=== PATIENT | female | born 1980 | race Hispanic/Latino ===

== ENCOUNTER 2017-06-21 21:07 | Day surgery (SDC) | payer OTHER ==
[2017-06-21 21:50] VITALS: BP 124/78; TEMP 98.7; BMI 31.1
--- NOTE | 2017-06-21 23:14 | PRG ---
DATE OF SERVICE: 06/21/2017 PRIMARY HOUSEHOLD CHORES: Dr. Andres at [facility]. CHIEF COMPLAINT: High blood pressure. HISTORY OF PRESENT ILLNESS: The patient is a 36-year-old G3, P2 female with an intrauterine pregnanc y at 36 weeks and 4 days, who is presenting to Labor and Delivery today with concerns of elevated blo od pressures at home. She reports a history of 2 previous deliveries at 34 weeks for preeclampsia an d is just concerned that of developing it once again. The patient denies any headaches, fever, fall, illness, chest pain, shortness of breath, nausea, vomiting, diarrhea, constipation, any new rashes, hip problems, knee problems, vaginal bleeding, leakage of fluid or urinary issues. She does report s he has been having swelling in her feet, to the point that she cannot feel her feet well and said brittany t her tongue has been numb. The patient reports that home, her blood pressures were running in the 1 40s diastolic. PAST MEDICAL HISTORY: Negative. PAST SURGICAL HISTORY: Negative. ALLERGIES: No known drug allergies. SOCIAL HISTORY: Denies drug, alcohol, or tobacco use. CURRENT MEDICATIONS: vitamins. OB LABS: Unavailable at time of dictation. REVIEW OF SYSTEMS: Per HPI. PHYSICAL EXAMINATION: VITAL SIGNS: The patient has been here for an hour and a half. Blood pressures have been in the 120 s to 130s/70s and 80s, heart rate in the 90s, and respiratory rate 18. GENERAL: She appears to be in no acute distress. She is alert and oriented, cooperative and pleasan t to interact with. HEENT: Head is normocephalic, atraumatic. LUNGS: Clear to auscultation bilaterally. HEART: Regular rate and rhythm. ABDOMEN: Gravid, soft, nontender. EXTREMITIES: Nontender. She does have bilateral pitting edema in her feet and ankles. GENITOURINARY: Has been deferred. heart tracing demonstrates a baby fetus with a baseline in the 120s with moderate long-term variability, positive accelerations, no decelerations. She might anthony ve some irritability on the tocometer though not clearly defined. ASSESSMENT AND PLAN: The patient is a 36-year-old female with an intrauterine at 36 weeks and 4 days concerned about elevated blood pressures. Her pressures have been well within normal limi ts over the last hour and half with no spikes. Reassurance has been given to Ms. Covington with precautio ns to return to Labor and Delivery if she has pressures in the severe range 160 the systolic and abov e 100 on diastolic. If she continues to have pressures in the mild range at home, tomorrow she has margarita rdz counseled to call her doctor, Dr. Andres for instructions on how to proceed. She does have an a ppointment the day after tomorrow, which she has been encouraged to keep.
== END 2017-06-21 22:45 | disposition home or self-care (01) ==
LOC: L&D/OP 21:07
PROVIDERS: ATTEND Student in an Organized Health Care Education/Training Program
DX: O99.89 Other specified diseases and conditions complicating pregnancy, childbirth and the puerperium (principal); R03.0 Elevated blood-pressure reading, without diagnosis of hypertension; Z3A.36 36 weeks gestation of pregnancy; Z87.59 Personal history of other complications of pregnancy, childbirth and the puerperium; Z79.82 Long term (current) use of aspirin; Z79.899 Other long term (current) drug therapy
CPT/HCPCS: 99282

== ENCOUNTER 2017-07-17 04:11 | Inpatient (IN) | payer MEDICAID, OTHER, SELFPAY ==
[2017-07-17 04:39] VITALS: BMI 32.1
[2017-07-17] MEDS ORDERED: Lidocaine 1% (PF) 30 ML VIAL SC PRN (04:54)
[2017-07-17] MEDS ORDERED: Methylergonovine 0.2 MG/ML VIAL IM PRN ×4 (04:54→15:54)
[2017-07-17] MEDS ORDERED: Misoprostol 200 MCG TAB PR PRN (04:54)
[2017-07-17] MEDS ORDERED: HYDROcodone/Acetaminophen 5/325 mg Tablet PO PRN ×4 (04:54→15:54)
[2017-07-17] MEDS ORDERED: Ibuprofen 800 MG TAB PO PRN (04:54)
[2017-07-17] MEDS ORDERED: Penicillin G Potassium 5 MILL.UNITS in Sodium Chloride 0.9% 100 ML IVPB SCH (05:00)
[2017-07-17] MEDS ORDERED: LR 500 ML/Oxytocin 10 units 500 ML IV SCH (05:00)
--- NOTE | 2017-07-17 05:08 | PDOC.LDHP ---
Labor and Delivery H&P Chief complaint: contractions HPI: 36 yo LAF EDC= 07/15/17 presents c/o SROM at 3:30 AM, now with UCs. Current gestational age (weeks): 40 Due date: 07/15/17 Dating criteria: last menstrual period Grav: 3 Para: 2 OB History Details: PNC at [facility]. On Progesterone until 37 weeks 2* to SVDs x2. Stopped ASA 1 week ago. Current complications: other Abnormal US findings: No Past Medical History: none Current medications: pre-kings vitamins Previous surgical history: none Allergies/Adverse Reactions: Allergies Allergy/AdvReac Type Severity Reaction Status Date / Time No Known Allergies Allergy Verified 07/17/17 04:41 Social history: none - Physical Exam Vital signs reviewed and normal: yes General: NAD Heart: RRR Lungs: nonlabored breathing Abdomen: gravid Extremeties: trace edema FHT: category 1 [place] contractions every: UCs seen q 3-5 mins - Vaginal Exam cm dilated: 4 Effacement: 50% Station: -2 - OB Labs Blood type: unknown RH: unknown Antibody Screen: unknown HIV: unknown RPR: unknown HEPSAg: unknown 1 hour GCT: unknown 3 hour GTT: unknown GBS: unknown - Assessment L&D Assessment: term rupture in membranes - Plan Plan: admit to L&D, labor augmentation if indicated (Records not available to review)
[2017-07-17] MEDS ORDERED: Ondansetron HCl/PF 4 MG/2 ML Vial IVP PRN ×2 (05:11→15:54)
[2017-07-17] MEDS ORDERED: Promethazine HCl 25 MG/ML VIAL IM PRN ×2 (05:11→15:54)
[2017-07-17 05:27] LABS: Hemoglobin 10.4 g/dL (12.0-16.0); Mean Corpuscular HGB CONC 32.7 g/dL (32.0-36.0); Mean Corpuscular Hemoglobin 25.3 pg (27.0-31.0); Mean Corpuscular Volume 77.3 fl (81.0-99.0); Platelet Count 217 thou/uL (130-400); RBC Distribution Width 16.3 % (11.5-14.5); Red Blood Cell (RBC) Count 4.11 mill/uL (4.20-5.40); White Blood Cell (WBC) Count 5.1 thou/uL (4.8-10.8)
[2017-07-17] MEDS: Lactated Ringer's 1,000 ML IV SCH ×2 (05:35→13:31)
[2017-07-17 05:56] LABS: Hep B Surf AB Non-Reactive (NonReactive); Syphilis Antibody Nonreactive (Nonreactive); Syphilis Antibody Index 0.04 S/CO (<1.00 Non-Reactive)
[2017-07-17] MEDS: Penicillin G 2.5 MILL.units 2.5 MILL.UNITS in Premix Bag 1 BAG IVPB SCH ×2 (09:30→13:30)
[2017-07-17] MEDS: LR / Pitocin 40 units/1000 ml 1,000 ML IV PRN ×2 (15:31→17:13)
[2017-07-17] MEDS ORDERED: Preparation H Ointment 28 GM TUBE PR PRN (15:54)
[2017-07-17] MEDS ORDERED: Misoprostol 200 MCG TAB VAG PRN (15:54)
[2017-07-17] MEDS ORDERED: Measles/Mumps/Rubella 10 MCG/0.5 ML VIAL SC ONE (15:54)
[2017-07-17] MEDS ORDERED: Varicella virus, LIVE 0.5 ML VIAL SC ONE (15:54)
[2017-07-17] MEDS ORDERED: Bisacodyl 10 MG SUPP PR PRN (15:54)
[2017-07-17] MEDS ORDERED: Lanolin Ointment 7 GM TUBE TOP PRN (15:54)
[2017-07-17] MEDS ORDERED: Adacel (T-DAP) 0.5 ML VIAL IM ONE (15:54)
[2017-07-17] MEDS ORDERED: Milk Of Magnesia 30 ML UDCUP PO PRN (15:54)
[2017-07-17] MEDS ORDERED: diphenhydrAMINE 25 MG CAP PO PRN (15:54)
[2017-07-17] MEDS ORDERED: Zolpidem Tartrate 5 MG TAB PO PRN (15:54)
[2017-07-17] MEDS ORDERED: Benzocaine/Menthol 20-0.5% 60 ML CAN TOP PRN (15:54)
--- NOTE | 2017-07-17 15:58 | PDOC.OPDEL ---
OB Operative/Delivery Note Delivery Dr/Surgeon: Will Pre-Delivery Diagnosis: active labor Procedure/Post Delivery Dx: spontaneous vaginal delivery Weeks gestation: 40 Anesthesia: none - Findings A Sex: male ("Chucho") Weight: 8 lb 5 oz - 1 min: 8 - 5 min: 9 - Additional Findings/Plan Placenta delivered: spontaneous Repaired Obstetrical Laceration: 2nd degree Estimated blood loss: 350 Post delivery plan: routine recovery
[2017-07-17] MEDS ORDERED: LR / Pitocin 40 units/1000 ml 1,000 ML IV SCH (16:00)
--- NOTE | 2017-07-17 16:01 | PDOC.LDPN ---
Labor & Delivery Progress Note - Subjective Subjective: painful contractions - Objective Vital signs reviewed and normal: yes General: NAD, resting Uterine fundus: non tender Dilation: 6 Effacement: 75% Station: -2 FHT: category 1 [place] contractions every: 5 Plan: pitocin for augmentation
[2017-07-17] MEDS: Ferrous Sulfate 325 MG TAB PO SCH (18:04)
[2017-07-17 19:24] LABS: HBSAg Index 0.38 S/CO (0-0.99); HIV (1/2) Antibody/Antigen Non-Reactive (NonReactive); HIV 1/2 INDEX 0.06 S/CO (<1.00); Hep B Surf Ag Non-Reactive S/CO (NonReactive)
[2017-07-17] MEDS: Docusate Calcium (SURFAK) 240 MG CAP PO SCH ×2 (22:00)
[2017-07-17] MEDS: Ibuprofen 800 MG TAB PO SCH (22:00)
--- NOTE | 2017-07-18 06:23 | PDOC.PP ---
Post Progress Note Post Day #: 1 Subjective: Doing well, no complaints. PO intake tolerated: yes Ambulation: yes Vital Signs (12 hours) Temp Pulse Resp BP 07/18/17 05:20 98.6 F 80 20 127/74 07/18/17 04:15 98.6 F 80 20 127/74 07/18/17 00:00 98.5 F 95 20 07/17/17 20:30 98.3 F 90 20 127/77 07/17/17 19:30 98.6 F 93 20 140/87 07/17/17 18:30 99.8 F H 89 24 H 132/76 Weight Weight 176 lb - Physical Examination General: NAD Respiratory: non-labored breathing Abdominal: lochia (wnl), no distention, appropriately TTP Fundus firm & at: U-3 Neurological: no gross focal deficits Psychiatric: A&Ox3, normal affect Result Diagrams: 07/17/17 05:22 Additional Labs: Post Labs Blood Type A POSITIVE 07/17/17 05:22 Hep Bs Antigen Non-Reactive S/CO (NonReactive) 07/17/17 18:34 (1) (spontaneous vaginal delivery) Code(s): O80 - ENCOUNTER FOR FULL-TERM UNCOMPLICATED DELIVERY Status: Acute - Assessment/Plan Doing well, would like to go home today. Plan d/c at 24 hours.
[2017-07-18] MEDS: Ibuprofen 800 MG TAB PO SCH ×2 (06:26→14:32)
[2017-07-18] MEDS: Docusate Calcium (SURFAK) 240 MG CAP PO SCH ×2 (08:25)
[2017-07-18] MEDS: Ferrous Sulfate 325 MG TAB PO SCH ×2 (08:26→17:01)
[2017-07-18] MEDS ORDERED: Prenatal Vitamin 1 TAB PO SCH (09:00)
[2017-07-18 12:45] VITALS: BP 119/70; TEMP 98.3
== END 2017-07-18 18:30 | disposition home or self-care (01) | DRG 775 ==
LOC: L&D/OP 04:11 → L&D 04:54 → 3SW 18:45
PROVIDERS: ADMIT Obstetrics & Gynecology; ATTEND Obstetrics & Gynecology
PROC: 10E0XZZ Delivery of Products of Conception, External Approach (ICD-10-PCS; principal; 2017-07-17)
PROC: 0KQM0ZZ Repair Perineum Muscle, Open Approach (ICD-10-PCS; 2017-07-17)
DX: O77.0 Labor and delivery complicated by meconium in amniotic fluid (principal); O70.1 Second degree perineal laceration during delivery; Z37.0 Single live birth; Z3A.40 40 weeks gestation of pregnancy; Z87.59 Personal history of other complications of pregnancy, childbirth and the puerperium
CPT/HCPCS: 36415; 85027; 86706; 86762; 86780; 86850; 86900; 86901; 87340; 87389; 99285; J0595; J2001; J2540; J7050; J7120